=== PATIENT | female | born 1970 | race Caucasian/White ===

== ENCOUNTER 2019-04-14 17:08 | Emergency (ER) | payer MEDICAID ==
[2019-04-14] MEDS: SOD CHLORIDE 0.9% 1,000 ML IV (18:20)
[2019-04-14] MEDS ORDERED: morphine 4 MG/ML VIAL IV (19:42)
[2019-04-14] MEDS: KETOROLAC 15 MG INJ IV (19:49)
== END 2019-04-14 21:51 | disposition home or self-care (01) ==
LOC: E/R 17:08
DX: K59.00 Constipation, unspecified (principal); N21.0 Calculus in bladder
CPT/HCPCS: 36415; 74176; 80053; 81003; 81025; 83690; 85025; 96361; 96374; 99285-25